=== PATIENT | male | born 1990 | race American Indian/Alaskan Native ===

== ENCOUNTER 2020-06-12 05:25 | Emergency (ER) | payer SELFPAY ==
[2020-06-12 05:38] VITALS: BP 110/63
--- NOTE | 2020-06-12 07:00 | XRay Report ---
RIGHT FEMUR 4 VIEWS INDICATION / CLINICAL INFORMATION: shot with nail gun, R/O object. COMPARISON: None available. FINDINGS: No skeletal abnormalities. No radiopaque foreign body. Signer Name: Johnathon Mathis MD Signed: 06/12/2020 6:55 AM Workstation Name: [id number]
--- NOTE | 2020-06-12 07:41 | Emergency Department Report ---
ED General Adult HPI - General Chief complaint: Extremity Injury, Lower Stated complaint: RIGHT LEG INJURY Time Seen by Provider: 06/12/20 07:30 Source: patient Mode of arrival: Ambulatory Limitations: No Limitations - History of Present Illness Initial comments: 29-year-old -[place] male patient presents with complaints of possible nail foreign body to his right leg x last night. Patient states while at work, he accidentally shot himself in the leg with a nail gun. He denies pulling the nail out of his leg. He rates his current pain as a 3/10 in severity and denies any active bleeding, redness, swelling, difficulty with ambulation, or numbness/tingling/weakness in his leg. He reports his last tetanus vaccination was within the last 5 years. Severity scale (0 -10): 6 - Related Data Previous Rx's Medication Instructions Recorded Last Taken Type Mupirocin [Bactroban 2% OINT] 1 applic TP TID 7 Days #1 tube 06/12/20 Unknown Rx Allergies Allergy/AdvReac Type Severity Reaction Status Date / Time No Known Allergies Allergy Unverified 06/12/20 05:35 ED Review of Systems ROS: Stated complaint: RIGHT LEG INJURY Other details as noted in HPI Constitutional: denies: chills, diaphoresis, fever, malaise Cardiovascular: denies: chest pain Gastrointestinal: denies: nausea, vomiting Skin: denies: change in color Neurological: denies: numbness, paresthesias Hematological/Lymphatic: denies: easy bruising ED Past Medical Hx - Past Medical History Previous Medical History?: No - Surgical History Past Surgical History?: Yes Additional Surgical History: left wrist - Social History Smoking Status: Current Every Day Smoker Substance Use Type: None - Medications Home Medications: Home Medications Medication Instructions Recorded Confirmed Last Taken Type Mupirocin [Bactroban 2% OINT] 1 applic TP TID 7 Days #1 tube 06/12/20 Unknown Rx ED Physical Exam - General Limitations: No Limitations General appearance: alert, in no apparent distress - Head Head exam: Present: atraumatic, normocephalic - Eye Eye exam: Present: normal appearance. Absent: scleral icterus - Neck Neck exam: Present: normal inspection - Respiratory Respiratory exam: Present: normal lung sounds bilaterally. Absent: respiratory distress - Cardiovascular Cardiovascular Exam: Present: regular rate, normal rhythm. Absent: systolic murmur, diastolic murmur, rubs, gallop - Extremities Exam Extremities exam: Present: full ROM, other (Tiny scabbed puncture wound noted to right anterior distal thigh; no active bleeding or surrounding erythema or induration noted; no purulent drainage noted) - Neurological Exam Neurological exam: Present: alert, oriented X3, normal gait - Psychiatric Psychiatric exam: Present: normal affect, normal mood - Skin Skin exam: Present: warm, dry, normal color. Absent: rash, diaphoretic, erythema ED Course Vital Signs 06/12/20 05:27 Temperature 97.8 F Pulse Rate 61 Respiratory 18 Rate Blood Pressure 110/63 [Right] O2 Sat by Pulse 99 Oximetry ED Medical Decision Making - Radiology Data Radiology results: report reviewed RIGHT FEMUR 4 VIEWS INDICATION / CLINICAL INFORMATION: shot with nail gun, R/O object. COMPARISON: None available. FINDINGS: No skeletal abnormalities. No radiopaque foreign body. - Medical Decision Making 29-year-old -[place] male patient presents with complaints of possible nail foreign body to his right leg x last night. Patient states while at work, he accidentally shot himself in the leg with a nail gun. He denies pulling the nail out of his leg. He rates his current pain as a 3/10 in severity and denies any active bleeding, redness, swelling, difficulty with ambulation, or numbness/tingling/weakness in his leg. He reports his last tetanus vaccination was within the last 5 years. No foreign body noted on x-ray. No signs of infection are noted on exam. Prescription for mupirocin given. Patient to follow-up with his PCP as needed. Discussed signs and symptoms that should prompt immediate return to the ED, patient verbalized understanding peer Critical care attestation.: If time is entered above; I have spent that time in minutes in the direct care of this critically ill patient, excluding procedure time. ED Disposition Clinical Impression: Puncture wound of right thigh Qualifiers: Encounter type: initial encounter Qualified Code(s): S71.131A - Puncture wound without foreign body, right thigh, initial encounter Disposition: TO HOME OR SELFCARE Is pt being admited?: No Condition: Stable Instructions: Puncture Wound (ED) Additional Instructions: If you develop any increased pain, swelling, redness, fever/chills/sweats, or drainage from the wound seek immediate emergency care Prescriptions: Mupirocin [Bactroban 2% OINT] 1 applic TP TID 7 Days #1 tube Referrals: PRIMARY CARE,MD [Primary Care Provider] - 3-5 Days
== END 2020-06-12 07:54 | disposition home or self-care (01) ==
LOC: ED 05:25
DX: S71.131A Puncture wound without foreign body, right thigh, initial encounter (principal); F17.200 Nicotine dependence, unspecified, uncomplicated; X58.XXXA Exposure to other specified factors, initial encounter; Y93.89 Activity, other specified; Y92.89 Other specified places as the place of occurrence of the external cause; Y99.8 Other external cause status
CPT/HCPCS: 99283